=== PATIENT | male | born 1975 | race Asian ===

== ENCOUNTER 2024-05-13 13:03 | Emergency (ER) | payer MEDICAID ==
[~2024-05-13] VITALS: Ht 175.3 cm; Wt 78.0 kg
[2024-05-13 13:17] VITALS: O2SAT 99
[2024-05-13 13:18] VITALS: BP 107/80; PULSE 100; RESP 18; TEMP 37.2; O2SAT 99
[2024-05-13 14:06] LABS: CLARITY URINE CLEAR (CLEAR); COLOR URINE DARK YELLOW (YELLOW); GLUCOSE URINE NEGATIVE (NEGATIVE); KETONES URINE TRACE (NEGATIVE); LEUKOCYTE ESTERASE URINE TRACE (NEGATIVE); NITRITE URINE NEGATIVE (NEGATIVE); OCCULT BLOOD URINE NEGATIVE (NEGATIVE); PH URINE 6.5 (4.5-8.0); PROTEIN URINE NEGATIVE (NEGATIVE); SPECIFIC GRAVITY URINE 1.023 (1.005-1.030)
[2024-05-13 14:06] LABS: BASOPHILS % 1.2 % (0.0-2.0); EOSINOPHILS % 6.7 % (0.0-5.0); HEMATOCRIT. 44.6 % (42.0-52.0); HEMOGLOBIN. 14.7 g/dL (14.0-18.0); LYMPHOCYTES % 40.1 % (20.0-50.0); MEAN CORPUSCULAR HEMOGLOBIN 29.8 pg (28.0-32.0); MEAN CORPUSCULAR VOLUME 90.3 fL (80.0-94.0); MEAN PLATELET VOLUME 8.8 fl (7.4-10.4); MONOCYTES % 11.1 % (2.0-8.0); NEUTROPHILS % 40.9 % (40.0-76.0); PLATELET 240 x1000/uL (130-400); RED BLOOD CELL COUNT 4.94 mill/uL (4.7-6.1); RED CELL DISTRIBUTION WIDTH 13.8 % (11.6-14.6); WHITE BLOOD COUNT 3.8 x1000/uL (4.5-11.0)
[2024-05-13 14:13] LABS: CHLORIDE 99 mEq/L (98-107); POTASSIUM 4.4 mEq/L (3.5-5.1); SODIUM 135 mEq/L (136-145)
[2024-05-13 14:14] LABS: CALCIUM 8.4 mg/dL (8.7-10.4); CARBON DIOXIDE 25 mEq/L (21-32)
[2024-05-13 14:19] LABS: CREATININE 0.9 mg/dL (0.6-1.3); GLUCOSE 94 mg/dL (70-105); INR 1.2; PROTHROMBIN TIME 12.7 sec (9.6-11.0); UREA NITROGEN BLOOD 13 mg/dL (9-23)
[2024-05-13 14:21] LABS: ALANINE AMINOTRANSFERASE 129 IU/L (10-49); ALBUMIN 3.5 g/dL (3.2-4.8); ASPARTATE AMINOTRANSFERASE 212 IU/L (<34); BILIRUBIN DIRECT 0.4 mg/dL (<=3.0)
[2024-05-13 14:22] LABS: BILIRUBIN TOTAL 1.4 mg/dL (0.1-1.0); PROTEIN TOTAL 7.5 g/dL (6.0-8.3)
[2024-05-13 14:26] LABS: RBC URINE NONE SEEN /hpf (0-2); SQUAMOUS EPITHELIAL CELL URINE NONE SEEN /lpf (RARE/1+); WBC URINE 0-2 /hpf (0-2)
[2024-05-13 14:27] LABS: BACTERIA URINE TRACE
[2024-05-13] MEDS ORDERED: LACT1CAP78 MT (16:43)
[2024-05-13] MEDS ORDERED: FAMO-135 MT (16:43)
[2024-05-13] MEDS ORDERED: OMEP40CA20 MT (16:43)
[2024-05-13] MEDS ORDERED: MAG-55 MT (16:43)
[2024-05-13] MEDS: ONDANSETRON 4MG ODT PO ONE (16:54)
[2024-05-13] MEDS: PANTOPRAZOLE 40MG DR TABLET PO ONE (16:54)
[2024-05-13] MEDS: MAGNESIUM/ALUMINUM HYDROXIDE/SIMETHICONE 30ML UDC PO ONE (16:54)
== END 2024-05-13 16:55 | disposition home or self-care (01) ==
LOC: ER 14:22
DX: K29.70 Gastritis, unspecified, without bleeding (principal); E78.00 Pure hypercholesterolemia, unspecified; Z79.899 Other long term (current) drug therapy
CPT/HCPCS: 99285; 74177; 76705; 80076; 80048; 81003; 83690; 85025; 85610; 36415; Q0162; 99284

== ENCOUNTER 2024-09-27 11:16 | Emergency (ER) | payer MEDICAID ==
[~2024-09-27] VITALS: Ht 175.3 cm; Wt 68.0 kg
[~2024-09-27 11:16] MED LIST: FAMO-135 MT; LACT1CAP78 MT; MAG-55 MT; OMEP40CA20 MT
[2024-09-27 11:21] VITALS: O2SAT 100
[2024-09-27 12:03] LABS: BASOPHILS % 0.7 % (0.0-2.0); EOSINOPHILS % 3.5 % (0.0-5.0); HEMATOCRIT. 41.9 % (42.0-52.0); HEMOGLOBIN. 14.7 g/dL (14.0-18.0); LYMPHOCYTES % 25.1 % (20.0-50.0); MEAN PLATELET VOLUME 9.1 fl (7.4-10.4); MONOCYTES % 8.6 % (2.0-8.0); NEUTROPHILS % 62.1 % (40.0-76.0); PLATELET 265 x1000/uL (130-400); RED BLOOD CELL COUNT 4.96 mill/uL (4.7-6.1); RED CELL DISTRIBUTION WIDTH 13.7 % (11.6-14.6)
[2024-09-27] MEDS: ONDANSETRON 4MG ODT PO ONE (12:17)
[2024-09-27] MEDS: MAGNESIUM/ALUMINUM HYDROXIDE/SIMETHICONE 30ML UDC PO ONE (12:17)
[2024-09-27] MEDS: FAMOTIDINE 20MG TABLET PO ONE (12:17)
[2024-09-27 12:44] LABS: CLARITY URINE CLEAR (CLEAR); COLOR URINE DARK YELLOW (YELLOW); GLUCOSE URINE NEGATIVE (NEGATIVE); KETONES URINE TRACE (NEGATIVE); LEUKOCYTE ESTERASE URINE NEGATIVE (NEGATIVE); NITRITE URINE NEGATIVE (NEGATIVE); OCCULT BLOOD URINE NEGATIVE (NEGATIVE); PH URINE 7.0 (4.5-8.0); PROTEIN URINE TRACE (NEGATIVE); SPECIFIC GRAVITY URINE 1.026 (1.005-1.030); UROBILINOGEN URINE 1.0 E.U./dL (0.2-1.0)
[2024-09-27 12:49] LABS: CREATININE 1.1 mg/dL (0.6-1.3)
[2024-09-27 12:50] LABS: UREA NITROGEN BLOOD 14 mg/dL (9-23)
[2024-09-27 12:51] LABS: ASPARTATE AMINOTRANSFERASE 159 IU/L (<34)
[2024-09-27 12:52] LABS: BILIRUBIN DIRECT 0.5 mg/dL (<=3.0); BILIRUBIN TOTAL 1.5 mg/dL (0.1-1.0); PROTEIN TOTAL 7.6 g/dL (6.0-8.3)
[2024-09-27 13:37] LABS: RBC URINE NONE SEEN /hpf (0-2); WBC URINE 0-2 /hpf (0-2)
[2024-09-27 13:38] LABS: BACTERIA URINE NONE SEEN; MUCUS URINE TRACE /lpf (NONE/TRACE); SQUAMOUS EPITHELIAL CELL URINE RARE /lpf (RARE/1+)
[2024-09-27] MEDS: SODIUM BICARBONATE 8.4% 50MEQ/50ML SYR IV ONE (14:18)
[2024-09-27] MEDS: SODIUM CHLORIDE 0.9% 1,000 ML IV ONE (14:18)
[2024-09-27 15:21] LABS: BG BASE EXCESS 0.8 mmol/L (-2.0-3.0); BG CARBOXYHEMOGLOBIN 0.1 % (0.5-1.5); BG DEOXYHEMOGLOBIN 3.5 % (0.0-5.0); BG FRACTION INSPIRED OXYGEN 21; BG HCO3 ACT 24.9 mmol/L (21.0-28.0); BG METHEMOGLOBIN 0.0 % (0.5-1.5); BG OXYGEN SATURATION 96.5 % (94.0-98.0); BG OXYHEMOGLOBIN 96.4 % (94.0-98.0); BG PCO2 37.7 mmHg (35.0-48.0); BG PH 7.437 (7.350-7.450); BG PO2 92.3 mmHg (83.0-108.0); BG SAMPLE SITE PL; BG TOTAL HEMOGLOBIN 12.8 g/dL (13.5-17.5); BG VENT MODE ROOM AIR
[2024-09-27 16:52] VITALS: TEMP 36.9; O2SAT 100
[2024-09-27 17:02] VITALS: BP 126/66; PULSE 80; RESP 16
[2024-09-27] MEDS: MORPHINE SULFATE 4 MG/ML INJ (FOR IV/IM USE) IV ONE (17:02)
== END 2024-09-27 17:23 | disposition short-term general hospital (02) ==
LOC: ER 11:16
DX: R11.2 Nausea with vomiting, unspecified (principal); E78.00 Pure hypercholesterolemia, unspecified; E87.20 Acidosis, unspecified; Z79.899 Other long term (current) drug therapy; Z87.19 Personal history of other diseases of the digestive system
CPT/HCPCS: 80076; 80048; 81003; 82010; 80320; 83690; 85025; 36415; 74176; 76700; 82805; 82375; 96361; 96374; 96375; 99291; 36600; Q0162; J3490; J2270; J7030; G0480